=== PATIENT | female | born 1950 | race Caucasian/White ===

== ENCOUNTER 2017-08-01 08:34 | Emergency (ER) | payer OTHER ==
[~2017-08-01] VITALS: Ht 157.5 cm; Wt 91.5 kg
[2017-08-01 09:30] LABS: HEMATOCRIT 43.5 % (36.0-46.0); HEMOGLOBIN 14.5 G/DL (11.9-15.5); MCH 32.2 PG (29.0-34.0); MCHC 33.3 G/DL (30.0-36.0); MCV 96.7 FL (83-99); PLATELET COUNT 161 K/uL (156-360); RBC DIS.WIDTH-CV 12.9 % (11.8-14.6); WHITE BLOOD COUNT 5.6 K/uL (4.1-10.2)
[2017-08-01 09:40] LABS: CHLORIDE 104 mEq/L (99-109); POTASSIUM 4.6 mEq/L (3.7-5.4); SODIUM 140 mEq/L (136-147)
[2017-08-01 09:42] LABS: GLUCOSE 95 mg/dL (70-99)
[2017-08-01 09:46] LABS: CREATININE 0.7 mg/dL (0.6-1.3); GFR ESTIMATE (CALCULATED) > 59 mL/min/; UREA NITROGEN (BUN) 17 mg/dL (9-23)
[2017-08-01] MEDS ORDERED: PERCOCET 5/31 TABLET PO (14:25)
[2017-08-01 15:45] VITALS: BP 132/85
== END 2017-08-01 15:55 | disposition home or self-care (01) ==
LOC: EME 08:34
PROVIDERS: Physician Assistant Medical
DX: S82.852A Displaced trimalleolar fracture of left lower leg, initial encounter for closed fracture (principal); S93.05XA Dislocation of left ankle joint, initial encounter; W10.1XXA Fall (on)(from) sidewalk curb, initial encounter; Y93.01 Activity, walking, marching and hiking; Y92.524 Gas station as the place of occurrence of the external cause; M32.9 Systemic lupus erythematosus, unspecified; N80.9 Endometriosis, unspecified; Z87.891 Personal history of nicotine dependence; Z88.8 Allergy status to other drugs, medicaments and biological substances
CPT/HCPCS: 71045; 73590; 73610; 73630; 73700; 80048; 85027; 93005; 99281; 99285; J2270; J7030

== ENCOUNTER 2017-08-07 11:22 | Day surgery (SDC) | payer OTHER ==
[~2017-08-07] VITALS: Ht 157.5 cm; Wt 88.5 kg
[~2017-08-07 11:22] MED LIST: BIOTIN 5000MCG PO; MOBIC15 MG PO; PERCOCET 5/31 TABLET PO; PLAQUENIL200 MG PO; SERTRALINE HCL25 MG PO; TRAMADOL HCL50 MG PO; VITAMIN D2000 UNIT PO
[2017-08-07] MEDS ORDERED: FLORASTOR250 MG PO (12:03)
[2017-08-07] MEDS ORDERED: RESTASIS MULTI5.5 ML BOTH EARS (12:03)
[2017-08-07 12:19] VITALS: BP 121/56
[2017-08-07 19:50] VITALS: BP 137/79
[2017-08-07 20:50] VITALS: BP 130/75
== END 2017-08-07 21:29 | disposition home or self-care (01) ==
LOC: SDC 11:22
DX: S82.852A Displaced trimalleolar fracture of left lower leg, initial encounter for closed fracture (principal); W17.89XA Other fall from one level to another, initial encounter; Z86.718 Personal history of other venous thrombosis and embolism; M32.9 Systemic lupus erythematosus, unspecified; Z90.710 Acquired absence of both cervix and uterus; Z82.61 Family history of arthritis; Z82.49 Family history of ischemic heart disease and other diseases of the circulatory system; Z83.49 Family history of other endocrine, nutritional and metabolic diseases; Z83.3 Family history of diabetes mellitus
CPT/HCPCS: 73600; 76000; C1713; J0690; J1100; J1170; J2250; J2405; J2710; J3010; J7643; Q0175; S0020